=== PATIENT | male | born 1945 | race Two or more races ===

== ENCOUNTER 2025-02-18 11:15 | Day surgery (SDC) | payer MEDICARE, MEDICAID, SELFPAY ==
--- NOTE | 2025-02-17 08:28 | EKG_ITS ---
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
[2025-02-17 09:13] LABS: Alanine Aminotransferase 18 U/L (10-49); Albumin, Serum 4.2 gm/dL (3.4-4.8); Albumin/Globulin Ratio 1.4 (1.2-2.2); Alkaline Phosphatase 55 U/L (46-116); Anion Gap 9 (7-16); Aspartate Amino Transferase 19 U/L (0-34); BUN/Creatinine Ratio 13 Ratio (12-20); Bilirubin,Total 0.5 mg/dL (0.3-1.2); Blood Urea Nitrogen 15 mg/dL (9-23); Calcium 9.6 mg/dL (8.3-10.6); Calcium (Corrected) 9.6 mg/dL (8.5-10.1); Carbon Dioxide 26.8 mMol/L (20.0-31.0); Chloride 105 mMol/L (98-107); Creatinine (Component) 1.2 mg/dL (0.6-1.3); Globulin 2.9 gm/dL (2.3-3.5); Glucose 95 mg/dL (74-106); Osmolality,Calculated 282 (275-295); Potassium 4.3 mMol/L (3.4-5.1); Sodium 141 mMol/L (136-145); Total Protein 7.1 gm/dL (5.7-8.2); eGFR > 60 See Note
[2025-02-17 14:33] VITALS: BMI 29.2
[2025-02-18] VITALS (7 sets, daily range): BP systolic 118–150; BP diastolic 72–99; PULSE 49–74; RESP 13–21; TEMP 36.2–36.6; O2SAT 94–97; BMI 32.4
--- NOTE | 2025-02-18 09:09 | EKG_ITS ---
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
[2025-02-18 12:19] LABS: Alanine Aminotransferase 29 U/L (10-49); Albumin, Serum 4.3 gm/dL (3.4-4.8); Albumin/Globulin Ratio 1.4 (1.2-2.2); Alkaline Phosphatase 60 U/L (46-116); Anion Gap 12 (7-16); Aspartate Amino Transferase 28 U/L (0-34); BUN/Creatinine Ratio 12 Ratio (12-20); Bilirubin,Total 0.6 mg/dL (0.3-1.2); Blood Urea Nitrogen 16 mg/dL (9-23); Calcium 9.2 mg/dL (8.3-10.6); Calcium (Corrected) 9.2 mg/dL (8.5-10.1); Carbon Dioxide 22.9 mMol/L (20.0-31.0); Chloride 108 mMol/L (98-107); Creatinine (Component) 1.3 mg/dL (0.6-1.3); Estimated Creatinine Clearance 46.2 mL/min (>60); Globulin 3.0 gm/dL (2.3-3.5); Glucose 102 mg/dL (74-106); Osmolality,Calculated 286 (275-295); Potassium 4.0 mMol/L (3.4-5.1); Sodium 143 mMol/L (136-145); Total Protein 7.3 gm/dL (5.7-8.2); eGFR 56 See Note
[2025-02-18] MEDS: RINGERS LACTATED 500 ML 500 ML 20 ML IV (15:24)
[2025-02-18] MEDS: SIMETHICONE 40 MG/0.6 ML ORAL SYRINGE PO (15:40)
--- NOTE | 2025-02-18 16:44 | SUR.PHASEII ---
received report and and pt from WENCESLAO Lynn and Dr. Bonilla. Pt sedated, vss, no distress noted. pt's abd soft on palpation, IV intact -no s/s of infiltration or redness to site.
--- NOTE | 2025-02-18 17:00 | SUR.PHASEII ---
pt awake, alert & oriented to self and place, pt denies any pain. Pt follows commands. Pt tolerating ice chips, pt denies any nausea. vss.
--- NOTE | 2025-02-18 17:25 | SUR.PHASEII ---
pt awake, A&ox3, vss, no distress noted. Pt denies any pain or nausea. no drainage noted from rectal area. DC instructions given to pt and his daughter Nena. IV removed with cath intact. pt tolerated well. Pt able to dress himself with min assist.
== END 2025-02-18 17:25 | disposition home or self-care (01) ==
PROVIDERS: Anesthesiology; PCP Family Medicine; Referring Provider Internal Medicine Gastroenterology; Visit Provider Internal Medicine Gastroenterology
PROC: (CPT 43239; principal; 2025-02-18 13:00)
PROC: 0DJD8ZZ Inspection of Lower Intestinal Tract, Via Natural or Artificial Opening Endoscopic (ICD-10-PCS; CPT 45378; 2025-02-18 13:00)
DX: D12.0 Benign neoplasm of cecum (principal); D12.3 Benign neoplasm of transverse colon; K64.9 Unspecified hemorrhoids; K63.5 Polyp of colon; G47.30 Sleep apnea, unspecified; E66.01 Morbid (severe) obesity due to excess calories; Z68.32 Body mass index [BMI] 32.0-32.9, adult; Z01.810 Encounter for preprocedural cardiovascular examination; I44.4 Left anterior fascicular block
CPT/HCPCS: 45385; 45381; 45380; 36415; 80053; 93005; A4217; A4649; J7120; A9270